=== PATIENT | male | born 1975 | race Asian ===

== ENCOUNTER 2016-10-04 17:26 | Inpatient (IN) | payer MEDICAID ==
[~2016-10-04] VITALS: Ht 172.7 cm; Wt 70.6 kg
[2016-10-04] VITALS (7 sets, daily range): BP systolic 104–117; BP diastolic 55–63
[~2016-10-04 17:26] MED LIST: LEVAQUIN PO; NOCURR; SLEEPING; anxiety med
[2016-10-04 19:20] LABS: BASOPHILS % (AUTO) 0.5 % (0.0-2.0); EOSINOPHILS % (AUTO) 0.1 % (1.0-6.0); LYMPHOCYTES # (AUTO) 1.5 K/uL (1.0-4.8); LYMPHOCYTES % (AUTO) 25.8 % (22.0-44.0); MEAN CORPUSCULAR HEMOGLOBIN 25.2 pg (26.0-34.0); MEAN CORPUSCULAR HGB CONC 32.6 G/dL (31.0-37.0); MEAN CORPUSCULAR VOLUME 77 fL (80-100); MONOCYTES # (AUTO) 0.3 K/uL (0.1-1.0); MONOCYTES % (AUTO) 5.6 % (2.0-9.0); NEUTROPHILS # (AUTO) 3.9 K/uL (1.8-7.7); PLATELET COUNT (AUTO) 276 K/uL (150-450); RED CELL DISTRIBUTION WIDTH 25.2 % (11.5-14.5); WHITE BLOOD COUNT (AUTO) 5.8 K/uL (4.5-11.0)
[2016-10-04 19:29] LABS: ANION GAP 5 mmol/L (8-16); CALCIUM, TOTAL 7.4 mg/dL (8.8-10.5); CARBON DIOXIDE 27 mmol/L (22-29); CHLORIDE 109 mmol/L (98-107); GLOMERULAR FILTR. RATE CALC > 60 mL/min (>60); POTASSIUM 4.2 mmol/L (3.5-5.1); SODIUM SERUM 141 mmol/L (136-145); UREA NITROGEN, BLOOD 36 mg/dL (7-18)
[2016-10-04 19:33] LABS: HEMATOCRIT 18.6 % (41-53); HEMOGLOBIN 6.1 g/dL (13.5-17.5)
[2016-10-04 19:37] LABS: ALANINE AMINOTRANSFERASE 18 U/L (12-78); ALBUMIN 2.4 g/dL (3.4-5.0); ASPARTATE AMINOTRANSFERASE 17 U/L (15-37); BILIRUBIN,TOTAL 0.2 mg/dL (0.1-1.0); TOTAL PROTEIN, SERUM 5.1 g/dL (6.4-8.2)
[2016-10-04 20:02] LABS: RBC MORPHOLOGY COMMENT ABNORMAL RBC MORPH
[2016-10-04] MEDS ORDERED: ACETAMINOPHEN 325 MG TABLET PO PRN (21:15)
[2016-10-04] MEDS ORDERED: ONDANSETRON HCL 4 MG/2 ML VIAL IVP PRN (21:15)
[2016-10-04] MEDS ORDERED: 0.9% SODIUM CHLORIDE 10 ML SYRINGE IVP PRN (21:15)
[2016-10-04] MEDS ORDERED: MAGNESIUM HYDROXIDE SUSPENSION 30 ML UDCUP PO PRN (22:15)
[2016-10-05] VITALS (15 sets, daily range): BP systolic 92–115; BP diastolic 43–73
[2016-10-05] MEDS: PANTOPRAZOLE SODIUM 40 MG/VIAL IVP SCH ×3 (01:11→20:25)
[2016-10-05] MEDS: DEXTROSE 5%-0.45% SODIUM CHL 1,000 ML IV SCH ×2 (05:53→11:35)
[2016-10-05 07:22] LABS: BASOPHILS % (AUTO) 0.5 % (0.0-2.0); EOSINOPHILS % (AUTO) 0.6 % (1.0-6.0); HEMATOCRIT 24.3 % (41-53); HEMOGLOBIN 7.7 g/dL (13.5-17.5); LYMPHOCYTES # (AUTO) 2.2 K/uL (1.0-4.8); LYMPHOCYTES % (AUTO) 38.1 % (22.0-44.0); MEAN CORPUSCULAR HEMOGLOBIN 26.2 pg (26.0-34.0); MEAN CORPUSCULAR HGB CONC 31.8 G/dL (31.0-37.0); MEAN CORPUSCULAR VOLUME 82 fL (80-100); MONOCYTES # (AUTO) 0.5 K/uL (0.1-1.0); MONOCYTES % (AUTO) 8.9 % (2.0-9.0); NEUTROPHILS % (AUTO) 51.9 % (40.0-70.0); PLATELET COUNT (AUTO) 235 K/uL (150-450); RED BLOOD CELL COUNT(AUTO) 2.96 MIL/uL (4.50-5.90); RED CELL DISTRIBUTION WIDTH 24.3 % (11.5-14.5); WHITE BLOOD COUNT (AUTO) 5.9 K/uL (4.5-11.0)
[2016-10-05 08:30] LABS: RBC MORPHOLOGY COMMENT ABNORMAL RBC MORPH
[2016-10-05] MEDS: DOCUSATE SODIUM 100 MG CAPSULE PO SCH ×2 (09:00→20:25)
[2016-10-05] MEDS ORDERED: SODIUM CHLORIDE 0.9% 1,000 ML IV ONE ×2 (10:39→11:00)
[2016-10-05] MEDS ORDERED: LIDOCAINE HCL 2% VISCOUS 15 ML SOLUTION UDCUP PO ONE (11:45)
[2016-10-05 13:22] LABS: HEMATOCRIT 23.1 % (41-53); HEMOGLOBIN 7.4 g/dL (13.5-17.5)
[2016-10-05 13:34] LABS: PROTHROMBIN TIME 10.4 SEC (9.4-11.6)
[2016-10-05] MEDS ORDERED: PROPOFOL 1% 20 ML VIAL IVP ONE (20:57)
[2016-10-05] MEDS ORDERED: LIDOCAINE HCL/PF 2% 5 ML SYRINGE IVP ONE (20:57)
[2016-10-06 04:30] VITALS: BP 101/56
[2016-10-06 06:15] LABS: BASOPHILS % (AUTO) 0.5 % (0.0-2.0); EOSINOPHILS % (AUTO) 0.6 % (1.0-6.0); HEMATOCRIT 21.9 % (41-53); HEMOGLOBIN 7.1 g/dL (13.5-17.5); LYMPHOCYTES # (AUTO) 1.3 K/uL (1.0-4.8); MEAN CORPUSCULAR HEMOGLOBIN 26.7 pg (26.0-34.0); MEAN CORPUSCULAR HGB CONC 32.2 G/dL (31.0-37.0); MEAN CORPUSCULAR VOLUME 83 fL (80-100); MONOCYTES # (AUTO) 0.4 K/uL (0.1-1.0); NEUTROPHILS # (AUTO) 3.4 K/uL (1.8-7.7); NEUTROPHILS % (AUTO) 64.9 % (40.0-70.0); PLATELET COUNT (AUTO) 238 K/uL (150-450); RED BLOOD CELL COUNT(AUTO) 2.64 MIL/uL (4.50-5.90); RED CELL DISTRIBUTION WIDTH 24.9 % (11.5-14.5); WHITE BLOOD COUNT (AUTO) 5.2 K/uL (4.5-11.0)
[2016-10-06 06:41] LABS: ALANINE AMINOTRANSFERASE 24 U/L (12-78); ALBUMIN 2.3 g/dL (3.4-5.0); ANION GAP 4 mmol/L (8-16); ASPARTATE AMINOTRANSFERASE 18 U/L (15-37); BILIRUBIN,TOTAL 0.2 mg/dL (0.1-1.0); CALCIUM, TOTAL 7.4 mg/dL (8.8-10.5); CARBON DIOXIDE 28 mmol/L (22-29); CHLORIDE 112 mmol/L (98-107); CREATININE 0.64 mg/dL (0.60-1.30); GLOMERULAR FILTR. RATE CALC > 60 mL/min (>60); POTASSIUM 4.1 mmol/L (3.5-5.1); SODIUM SERUM 144 mmol/L (136-145); TOTAL PROTEIN, SERUM 5.1 g/dL (6.4-8.2); UREA NITROGEN, BLOOD 14 mg/dL (7-18)
[2016-10-06 07:15] LABS: RBC MORPHOLOGY COMMENT ABNORMAL RBC MORPH
[2016-10-06 08:15] VITALS: BP 113/62
[2016-10-06] MEDS: PANTOPRAZOLE SODIUM 40 MG/VIAL IVP SCH ×2 (08:24→20:24)
[2016-10-06] MEDS: DOCUSATE SODIUM 100 MG CAPSULE PO SCH ×2 (08:24→20:24)
[2016-10-06] MEDS: ACETAMINOPHEN 325 MG TABLET PO PRN ×2 (08:25→22:53)
[2016-10-06 12:16] VITALS: BP 127/73
[2016-10-06 16:00] VITALS: BP 116/70
[2016-10-06 23:51] VITALS: BP 119/71
[2016-10-07 05:29] VITALS: BP 125/93
[2016-10-07 07:22] VITALS: BP 120/71
[2016-10-07 07:30] LABS: BASOPHILS % (AUTO) 0.4 % (0.0-2.0); HEMATOCRIT 23.2 % (41-53); HEMOGLOBIN 7.5 g/dL (13.5-17.5); LYMPHOCYTES # (AUTO) 1.5 K/uL (1.0-4.8); LYMPHOCYTES % (AUTO) 33.1 % (22.0-44.0); MEAN CORPUSCULAR HEMOGLOBIN 26.5 pg (26.0-34.0); MEAN CORPUSCULAR HGB CONC 32.1 G/dL (31.0-37.0); MEAN CORPUSCULAR VOLUME 83 fL (80-100); MONOCYTES # (AUTO) 0.6 K/uL (0.1-1.0); NEUTROPHILS # (AUTO) 2.5 K/uL (1.8-7.7); NEUTROPHILS % (AUTO) 53.5 % (40.0-70.0); PLATELET COUNT (AUTO) 269 K/uL (150-450); RED BLOOD CELL COUNT(AUTO) 2.81 MIL/uL (4.50-5.90); RED CELL DISTRIBUTION WIDTH 25.8 % (11.5-14.5); WHITE BLOOD COUNT (AUTO) 4.7 K/uL (4.5-11.0)
[2016-10-07 07:56] LABS: ALANINE AMINOTRANSFERASE 23 U/L (12-78); ALBUMIN 2.5 g/dL (3.4-5.0); ANION GAP 4 mmol/L (8-16); ASPARTATE AMINOTRANSFERASE 19 U/L (15-37); BILIRUBIN,TOTAL 0.2 mg/dL (0.1-1.0); CARBON DIOXIDE 30 mmol/L (22-29); CHLORIDE 108 mmol/L (98-107); CREATININE 0.67 mg/dL (0.60-1.30); GLOMERULAR FILTR. RATE CALC > 60 mL/min (>60); POTASSIUM 4.7 mmol/L (3.5-5.1); SODIUM SERUM 142 mmol/L (136-145); TOTAL PROTEIN, SERUM 5.5 g/dL (6.4-8.2); UREA NITROGEN, BLOOD 13 mg/dL (7-18)
[2016-10-07] MEDS: DOCUSATE SODIUM 100 MG CAPSULE PO SCH (08:32)
[2016-10-07] MEDS: PANTOPRAZOLE SODIUM 40 MG/VIAL IVP SCH (08:32)
[2016-10-07 10:36] VITALS: BP 106/73
[2016-10-07 12:21] LABS: RBC MORPHOLOGY COMMENT ABNORMAL RBC MORPH
[2016-10-07 16:07] VITALS: BP 111/63
[2016-10-07] MEDS ORDERED: FERR-89 PO (17:12)
[2016-10-07] MEDS ORDERED: DSS100 PO (17:13)
[2016-10-07] MEDS ORDERED: OMEP20 PO (17:14)
[2016-10-07] MEDS ORDERED: AMOX500T2 PO (17:16)
[2016-10-07] MEDS ORDERED: CLAR500T3 PO (17:17)
== END 2016-10-07 17:45 | disposition home or self-care (01) | DRG 241 ==
LOC: EMS 17:28 → 5N 21:00
PROVIDERS: ADMIT Internal Medicine; ATTEND Internal Medicine
PROC: 30233N1 Transfusion of Nonautologous Red Blood Cells into Peripheral Vein, Percutaneous Approach (ICD-10-PCS; 2016-10-04)
PROC: 0DB68ZX Excision of Stomach, Via Natural or Artificial Opening Endoscopic, Diagnostic (ICD-10-PCS; principal; 2016-10-05 11:45)
DX: K25.4 Chronic or unspecified gastric ulcer with hemorrhage (principal); E43 Unspecified severe protein-calorie malnutrition; E88.09 Other disorders of plasma-protein metabolism, not elsewhere classified; D50.9 Iron deficiency anemia, unspecified; F17.210 Nicotine dependence, cigarettes, uncomplicated; F32.9 Major depressive disorder, single episode, unspecified; B96.81 Helicobacter pylori [H. pylori] as the cause of diseases classified elsewhere; G90.9 Disorder of the autonomic nervous system, unspecified; F41.9 Anxiety disorder, unspecified; D62 Acute posthemorrhagic anemia; F15.90 Other stimulant use, unspecified, uncomplicated; F19.10 Other psychoactive substance abuse, uncomplicated; F64.9 Gender identity disorder, unspecified; F43.10 Post-traumatic stress disorder, unspecified; G47.00 Insomnia, unspecified; Z72.89 Other problems related to lifestyle; Z68.23 Body mass index [BMI] 23.0-23.9, adult; Z91.81 History of falling
CPT/HCPCS: 70450; 82271; 85014; 85018; 86850; 86900; 86901; 86920; 87389; 88305; 88312; 99285; C9113; J2704; J3490; J7030; P9016

== ENCOUNTER 2018-11-08 11:46 | Emergency (ER) | payer MEDICAID ==
[~2018-11-08] VITALS: Ht 172.7 cm; Wt 70.5 kg
[~2018-11-08 11:46] MED LIST changes: +AMOX500T2 PO; +CLAR500T3 PO; +DSS100 PO; +FERR-89 PO; -LEVAQUIN PO; -NOCURR; +OMEP20 PO; -SLEEPING; -anxiety med
[2018-11-08 12:37] VITALS: BP 123/87
[2018-11-08] MEDS ORDERED: FLUORESCEIN SODIUM 1 MG STRIP OD ONE (13:30)
[2018-11-08] MEDS ORDERED: PROPARACAINE HCL 0.5% 15 ML OPHTHALMIC SOLUTION OD ONE (13:30)
[2018-11-08] MEDS ORDERED: IBUPROFEN 800 MG TABLET PO ONE (13:30)
== END 2018-11-08 14:27 | disposition home or self-care (01) ==
LOC: EMS 11:47
DX: H10.9 Unspecified conjunctivitis (principal); F15.90 Other stimulant use, unspecified, uncomplicated; F32.9 Major depressive disorder, single episode, unspecified; F41.9 Anxiety disorder, unspecified

== ENCOUNTER 2019-02-05 00:25 | Emergency (ER) | payer MEDICAID ==
[~2019-02-05] VITALS: Ht 172.7 cm; Wt 75.0 kg
[2019-02-05] MEDS ORDERED: CEPHALEXIN MONOHYDRATE 500 MG CAPSULE PO ONE (01:45)
[2019-02-05] MEDS ORDERED: PERTUSS(ACELL),DIPH,TET VAC/PF 0.5 ML VIAL IM ONE (01:45)
[2019-02-05] MEDS ORDERED: LIDOCAINE 1% 10 ML VIAL ONE (01:47)
[2019-02-05 03:00] VITALS: BP 129/69
== END 2019-02-05 03:58 | disposition home or self-care (01) ==
LOC: EMS 00:28
DX: L02.216 Cutaneous abscess of umbilicus (principal); L03.316 Cellulitis of umbilicus; G47.00 Insomnia, unspecified; F41.9 Anxiety disorder, unspecified; F32.9 Major depressive disorder, single episode, unspecified; F15.90 Other stimulant use, unspecified, uncomplicated
CPT/HCPCS: 10060; 90471; 90715; 99284; J3490

== ENCOUNTER 2019-07-27 07:21 | Emergency (ER) | payer MEDICAID ==
[~2019-07-27] VITALS: Ht 172.7 cm; Wt 68.2 kg
[2019-07-27] MEDS ORDERED: FLUORESCEIN SODIUM 1 MG STRIP OU ONE (09:00)
[2019-07-27] MEDS ORDERED: PROPARACAINE HCL 0.5% 15 ML OPHTHALMIC SOLUTION OU ONE (09:00)
[2019-07-27 09:32] VITALS: BP 137/91
== END 2019-07-27 09:40 | disposition home or self-care (01) ==
LOC: EMS 07:22
DX: H16.003 Unspecified corneal ulcer, bilateral (principal); G47.00 Insomnia, unspecified; F41.9 Anxiety disorder, unspecified; F32.9 Major depressive disorder, single episode, unspecified; F15.90 Other stimulant use, unspecified, uncomplicated

== ENCOUNTER 2019-09-15 06:50 | Emergency (ER) | payer MEDICAID ==
[~2019-09-15] VITALS: Ht 172.7 cm; Wt 68.2 kg
[2019-09-15] MEDS ORDERED: MECLIZINE HCL 25 MG TABLET PO ONE (07:30)
[2019-09-15 07:35] LABS: BASOPHILS % (AUTO) 0.4 % (0.0-2.0); EOSINOPHILS % (AUTO) 0.1 % (1.0-6.0); HEMATOCRIT 42.8 % (41-53); HEMOGLOBIN 14.4 g/dL (13.5-17.5); LYMPHOCYTES # (AUTO) 0.7 K/uL (1.0-4.8); LYMPHOCYTES % (AUTO) 8.4 % (22.0-44.0); MEAN CORPUSCULAR HGB CONC 33.6 G/dL (31.0-37.0); MEAN CORPUSCULAR VOLUME 89 fL (80-100); MONOCYTES # (AUTO) 0.5 K/uL (0.1-1.0); MONOCYTES % (AUTO) 5.9 % (2.0-9.0); NEUTROPHILS # (AUTO) 7.6 K/uL (1.8-7.7); PLATELET COUNT (AUTO) 223 K/uL (150-450); RED BLOOD CELL COUNT(AUTO) 4.79 MIL/uL (4.50-5.90); RED CELL DISTRIBUTION WIDTH 13.7 % (11.5-14.5)
[2019-09-15 07:37] LABS: NEUTROPHILS % (AUTO) 85.2 % (40.0-70.0)
[2019-09-15 07:53] LABS: ANION GAP 8 mmol/L (8-16); CALCIUM, TOTAL 8.2 mg/dL (8.8-10.5); CARBON DIOXIDE 27 mmol/L (22-29); CHLORIDE 97 mmol/L (98-107); CREATININE 0.95 mg/dL (0.60-1.30); GLOMERULAR FILTR. RATE CALC > 60 mL/min (>60); GLUCOSE,RANDOM 102 mg/dL (70-110); POTASSIUM 3.8 mmol/L (3.5-5.1); SODIUM SERUM 132 mmol/L (136-145); UREA NITROGEN, BLOOD 17 mg/dL (7-18)
[2019-09-15 07:58] LABS: ALANINE AMINOTRANSFERASE 37 U/L (12-78); ALBUMIN 3.5 g/dL (3.4-5.0); ALKALINE PHOSPHATASE 64 U/L (46-116); ASPARTATE AMINOTRANSFERASE 31 U/L (15-37); BILIRUBIN,TOTAL 1.4 mg/dL (0.1-1.0); TOTAL PROTEIN, SERUM 7.9 g/dL (6.4-8.2)
[2019-09-15 09:52] VITALS: BP 105/65
== END 2019-09-15 09:59 | disposition left against medical advice (07) ==
LOC: EMS 06:50
DX: R51 Headache (principal); R42 Dizziness and giddiness; F41.9 Anxiety disorder, unspecified; F32.9 Major depressive disorder, single episode, unspecified; F19.90 Other psychoactive substance use, unspecified, uncomplicated
CPT/HCPCS: 36415; 70450; 80053; 85025; 93005; 99285; G0480

== ENCOUNTER 2019-09-18 19:59 | Emergency (ER) | payer MEDICAID ==
[~2019-09-18] VITALS: Ht 172.7 cm; Wt 68.2 kg
[2019-09-18] MEDS ORDERED: FLUORESCEIN SODIUM 1 MG STRIP OD ONE (22:45)
[2019-09-18] MEDS ORDERED: GENTAMICIN SULFATE 0.3% OPHTHALMIC SOLUTION 5 ML OD ONE (23:45)
[2019-09-18 23:55] VITALS: BP 127/85
== END 2019-09-18 23:56 | disposition home or self-care (01) ==
LOC: EMS 19:59
DX: S05.01XA Injury of conjunctiva and corneal abrasion without foreign body, right eye, initial encounter (principal); H57.89 Other specified disorders of eye and adnexa; L73.9 Follicular disorder, unspecified; F41.9 Anxiety disorder, unspecified; F32.9 Major depressive disorder, single episode, unspecified; X58.XXXA Exposure to other specified factors, initial encounter; Y93.89 Activity, other specified; Y92.89 Other specified places as the place of occurrence of the external cause; Y99.8 Other external cause status

== ENCOUNTER 2019-09-21 18:20 | Emergency (ER) | payer MEDICAID ==
[~2019-09-21] VITALS: Ht 175.3 cm; Wt 68.2 kg
[2019-09-21] MEDS ORDERED: SODIUM CHLORIDE 0.9% 1,000 ML IV ONE (18:48)
[2019-09-21] MEDS ORDERED: METOCLOPRAMIDE HCL 5 MG/ML 2 ML VIAL IVP ONE (19:00)
[2019-09-21] MEDS ORDERED: KETOROLAC TROMETHAMINE 30 MG/ML VIAL IVP ONE (19:00)
[2019-09-21 22:02] VITALS: BP 132/80
== END 2019-09-21 22:18 | disposition home or self-care (01) ==
LOC: EMS 18:21
DX: G43.909 Migraine, unspecified, not intractable, without status migrainosus (principal); R11.2 Nausea with vomiting, unspecified; G47.00 Insomnia, unspecified; F41.9 Anxiety disorder, unspecified; F32.9 Major depressive disorder, single episode, unspecified
CPT/HCPCS: 96361; 96374; 96375; 99284; J1885; J2765; J7030

== ENCOUNTER 2019-10-13 12:08 | Emergency (ER) | payer MEDICAID ==
[~2019-10-13] VITALS: Ht 172.7 cm; Wt 68.2 kg
[2019-10-13] MEDS ORDERED: FLUORESCEIN SODIUM 1 MG STRIP OU ONE (12:45)
[2019-10-13] MEDS ORDERED: PROPARACAINE HCL 0.5% 15 ML OPHTHALMIC SOLUTION OU ONE (12:45)
[2019-10-13 13:20] VITALS: BP 120/69
== END 2019-10-13 13:24 | disposition home or self-care (01) ==
LOC: EMS 12:18
DX: S05.02XA Injury of conjunctiva and corneal abrasion without foreign body, left eye, initial encounter (principal); G43.909 Migraine, unspecified, not intractable, without status migrainosus; F41.9 Anxiety disorder, unspecified; F32.9 Major depressive disorder, single episode, unspecified; X58.XXXA Exposure to other specified factors, initial encounter; Y93.89 Activity, other specified; Y92.89 Other specified places as the place of occurrence of the external cause; Y99.8 Other external cause status

== ENCOUNTER 2020-01-09 19:52 | Emergency (ER) | payer MEDICAID ==
[~2020-01-09] VITALS: Ht 172.7 cm; Wt 70.5 kg
[2020-01-09 21:54] VITALS: BP 117/82
== END 2020-01-09 23:30 | disposition left against medical advice (07) ==
LOC: EMS 19:53
DX: H57.11 Ocular pain, right eye (principal); Z53.21 Procedure and treatment not carried out due to patient leaving prior to being seen by health care provider

== ENCOUNTER 2020-01-13 10:16 | Emergency (ER) | payer MEDICAID ==
[~2020-01-13] VITALS: Ht 175.3 cm; Wt 68.2 kg
[2020-01-13 10:21] VITALS: BP 125/78
[2020-01-13] MEDS ORDERED: FLUORESCEIN SODIUM 1 MG STRIP OU ONE (11:00)
[2020-01-13] MEDS ORDERED: PROPARACAINE HCL 0.5% 15 ML OPHTHALMIC SOLUTION OU ONE (11:00)
== END 2020-01-13 11:43 | disposition left against medical advice (07) ==
LOC: EMS 10:17
DX: H57.89 Other specified disorders of eye and adnexa (principal); Z53.21 Procedure and treatment not carried out due to patient leaving prior to being seen by health care provider

== ENCOUNTER 2020-01-17 12:12 | Emergency (ER) | payer MEDICAID ==
[2020-01-17] MEDS ORDERED: FLUORESCEIN SODIUM 1 MG STRIP OD ONE (13:00)
[2020-01-17] MEDS ORDERED: PROPARACAINE HCL 0.5% 15 ML OPHTHALMIC SOLUTION OU ONE (13:00)
== END 2020-01-17 13:16 | disposition left against medical advice (07) ==
LOC: EMS 13:01
DX: H57.11 Ocular pain, right eye (principal); Z53.21 Procedure and treatment not carried out due to patient leaving prior to being seen by health care provider
CPT/HCPCS: 99173

== ENCOUNTER 2020-02-08 03:55 | Emergency (ER) | payer MEDICAID ==
[~2020-02-08] VITALS: Ht 172.7 cm; Wt 70.5 kg
[2020-02-08 04:05] VITALS: BP 123/78
== END 2020-02-08 04:19 | disposition home or self-care (01) ==
LOC: EMS 03:58
DX: T15.91XA Foreign body on external eye, part unspecified, right eye, initial encounter (principal); F32.9 Major depressive disorder, single episode, unspecified; F41.9 Anxiety disorder, unspecified; G43.909 Migraine, unspecified, not intractable, without status migrainosus; Y92.89 Other specified places as the place of occurrence of the external cause
CPT/HCPCS: Z7502

== ENCOUNTER 2020-02-24 03:04 | Emergency (ER) | payer MEDICAID ==
[~2020-02-24] VITALS: Ht 170.2 cm; Wt 70.0 kg
[2020-02-24 04:22] VITALS: BP 129/66
== END 2020-02-24 04:22 | disposition home or self-care (01) ==
LOC: EMS 03:04
DX: K64.9 Unspecified hemorrhoids (principal)
CPT/HCPCS: Z7502

== ENCOUNTER 2020-02-25 18:40 | Emergency (ER) | payer MEDICAID ==
[~2020-02-25] VITALS: Ht 177.8 cm; Wt 70.5 kg
[2020-02-25 19:28] LABS: BASOPHILS % (AUTO) 0.7 % (0.0-2.0); EOSINOPHILS % (AUTO) 2.1 % (1.0-6.0); HEMATOCRIT 41.4 % (41-53); LYMPHOCYTES # (AUTO) 0.9 K/uL (1.0-4.8); LYMPHOCYTES % (AUTO) 34.8 % (22.0-44.0); MEAN CORPUSCULAR HEMOGLOBIN 31.3 pg (26.0-34.0); MEAN CORPUSCULAR HGB CONC 33.9 G/dL (31.0-37.0); MEAN CORPUSCULAR VOLUME 93 fL (80-100); MONOCYTES # (AUTO) 0.3 K/uL (0.1-1.0); MONOCYTES % (AUTO) 12.5 % (2.0-9.0); NEUTROPHILS # (AUTO) 1.3 K/uL (1.8-7.7); NEUTROPHILS % (AUTO) 49.9 % (40.0-70.0); PLATELET COUNT (AUTO) 259 K/uL (150-450); RED BLOOD CELL COUNT(AUTO) 4.47 MIL/uL (4.50-5.90); RED CELL DISTRIBUTION WIDTH 13.5 % (11.5-14.5)
[2020-02-25] MEDS ORDERED: IOVERSOL 320 MG/ML 100 ML VIAL ONE (19:43)
[2020-02-25 19:51] LABS: ANION GAP 4 mmol/L (8-16); CALCIUM, TOTAL 8.8 mg/dL (8.8-10.5); CARBON DIOXIDE 31 mmol/L (22-29); CHLORIDE 104 mmol/L (98-107); CREATININE 1.19 mg/dL (0.60-1.30); GLOMERULAR FILTR. RATE CALC > 60 mL/min (>60); GLUCOSE,RANDOM 130 mg/dL (70-110); POTASSIUM 4.6 mmol/L (3.5-5.1); SODIUM SERUM 139 mmol/L (136-145); UREA NITROGEN, BLOOD 18 mg/dL (7-18)
[2020-02-25 19:55] LABS: ALANINE AMINOTRANSFERASE 34 U/L (12-78); ALBUMIN 3.4 g/dL (3.4-5.0); ALKALINE PHOSPHATASE 86 U/L (46-116); ASPARTATE AMINOTRANSFERASE 28 U/L (15-37); BILIRUBIN,TOTAL 0.4 mg/dL (0.1-1.0)
[2020-02-25] MEDS ORDERED: ACETAMINOPHEN 500 MG TABLET PO ONE (20:15)
[2020-02-25 22:00] VITALS: BP 123/71
== END 2020-02-25 22:35 | disposition home or self-care (01) ==
LOC: EMS 18:40
DX: R22.1 Localized swelling, mass and lump, neck (principal); F32.9 Major depressive disorder, single episode, unspecified; G40.909 Epilepsy, unspecified, not intractable, without status epilepticus
CPT/HCPCS: 36415; 70491; 80053; 85025; 99285; Q9967

== ENCOUNTER 2020-04-27 05:11 | Emergency (ER) | payer MEDICAID ==
[~2020-04-27] VITALS: Ht 172.7 cm; Wt 63.6 kg
[2020-04-27] MEDS ORDERED: DiphenhydrAMINE HCL 50 MG/ML VIAL IVP ONE (06:15)
[2020-04-27] MEDS ORDERED: KETOROLAC TROMETHAMINE 30 MG/ML VIAL IVP ONE (06:15)
[2020-04-27] MEDS ORDERED: METOCLOPRAMIDE HCL 5 MG/ML 2 ML VIAL IVP ONE (06:15)
[2020-04-27] MEDS ORDERED: SODIUM CHLORIDE 0.9% 1,000 ML IV ONE (06:15)
[2020-04-27 07:35] VITALS: BP 129/75
== END 2020-04-27 07:35 | disposition home or self-care (01) ==
LOC: EMS 05:11
DX: G43.909 Migraine, unspecified, not intractable, without status migrainosus (principal); F32.9 Major depressive disorder, single episode, unspecified; F41.9 Anxiety disorder, unspecified
CPT/HCPCS: 96361; 96374; 96375; 99284; J1200; J1885; J2765; J7030

== ENCOUNTER 2020-04-30 17:26 | Emergency (ER) | payer MEDICAID ==
[~2020-04-30] VITALS: Ht 172.7 cm; Wt 56.8 kg
[2020-04-30] MEDS ORDERED: DiphenhydrAMINE HCL 50 MG/ML VIAL IVP ONE (18:15)
[2020-04-30] MEDS ORDERED: PROCHLORPERAZINE EDISYLATE 5 MG/ML 2 ML VIAL IVP ONE (18:15)
[2020-04-30] MEDS ORDERED: SODIUM CHLORIDE 0.9% 1,000 ML IV ONE (18:15)
[2020-04-30 21:00] VITALS: BP 116/74
== END 2020-04-30 21:38 | disposition home or self-care (01) ==
LOC: EMS 17:26
DX: G43.909 Migraine, unspecified, not intractable, without status migrainosus (principal); F41.9 Anxiety disorder, unspecified; F32.9 Major depressive disorder, single episode, unspecified
CPT/HCPCS: 96361; 96374; 96375; 99284; J0780; J1200; J7030

== ENCOUNTER 2020-05-28 00:35 | Emergency (ER) | payer MEDICAID ==
[~2020-05-28] VITALS: Ht 172.7 cm; Wt 64.1 kg
[2020-05-28 00:37] VITALS: BP 136/90
[2020-05-28] MEDS ORDERED: PERTUSS(ACELL),DIPH,TET VAC/PF 0.5 ML VIAL IM ONE (02:15)
[2020-05-28] MEDS ORDERED: ACETAMINOPHEN 500 MG TABLET PO ONE ×2 (02:30)
== END 2020-05-28 02:39 | disposition home or self-care (01) ==
LOC: EMS 00:37
DX: T74.21XA Adult sexual abuse, confirmed, initial encounter (principal); F41.9 Anxiety disorder, unspecified; F32.9 Major depressive disorder, single episode, unspecified; G43.909 Migraine, unspecified, not intractable, without status migrainosus
CPT/HCPCS: 90471; 90715

== ENCOUNTER 2020-07-24 02:14 | Emergency (ER) | payer MEDICAID ==
[~2020-07-24] VITALS: Ht 172.7 cm; Wt 68.6 kg
[2020-07-24 02:19] VITALS: BP 116/83
== END 2020-07-24 02:59 | disposition left against medical advice (07) ==
LOC: EMS 02:18
DX: M54.9 Dorsalgia, unspecified (principal); Z53.21 Procedure and treatment not carried out due to patient leaving prior to being seen by health care provider

== ENCOUNTER 2020-07-24 17:13 | Emergency (ER) | payer MEDICAID ==
[~2020-07-24] VITALS: Ht 175.3 cm; Wt 68.6 kg
[2020-07-24 17:18] VITALS: BP 143/88
== END 2020-07-24 20:07 | disposition left against medical advice (07) ==
LOC: EMS 17:13
DX: R51.9 Headache, unspecified (principal); Z53.21 Procedure and treatment not carried out due to patient leaving prior to being seen by health care provider

== ENCOUNTER 2020-07-25 16:26 | Emergency (ER) | payer MEDICAID ==
[~2020-07-25] VITALS: Ht 172.7 cm; Wt 68.6 kg
[2020-07-25 16:46] VITALS: BP 139/86
== END 2020-07-25 17:05 | disposition home or self-care (01) ==
LOC: EMS 16:26
DX: L02.811 Cutaneous abscess of head [any part, except face] (principal); F32.9 Major depressive disorder, single episode, unspecified; F41.9 Anxiety disorder, unspecified

== ENCOUNTER 2020-10-03 23:01 | Emergency (ER) | payer MEDICAID ==
[~2020-10-03] VITALS: Ht 172.7 cm; Wt 63.6 kg
[2020-10-03 23:04] VITALS: BP 140/96
[2020-10-04] MEDS ORDERED: SOD BORATE/BORIC AC/WATER/NACL 118 ML BOTTLE OU ONE (00:30)
[2020-10-04] MEDS ORDERED: OXYMETAZOLINE HCL 0.05% 15 ML NASAL SPRAY NASAL ONE (00:30)
== END 2020-10-04 00:41 | disposition home or self-care (01) ==
LOC: EMS 23:04
DX: R04.0 Epistaxis (principal); G43.909 Migraine, unspecified, not intractable, without status migrainosus; F32.9 Major depressive disorder, single episode, unspecified; F41.9 Anxiety disorder, unspecified; Z88.8 Allergy status to other drugs, medicaments and biological substances
CPT/HCPCS: 99282; Z7502; Z7610

== ENCOUNTER 2020-11-15 22:03 | Emergency (ER) | payer MEDICAID ==
[~2020-11-15] VITALS: Ht 172.7 cm; Wt 57.3 kg
[2020-11-15 22:13] VITALS: BP 149/85
[2020-11-15] MEDS ORDERED: DEXTRAN 70 0.1%/HYPROMELL 0.3% 0.9 ML OPHTHALMIC SOLUTION [PF] OU ONE (22:45)
== END 2020-11-15 23:29 | disposition left against medical advice (07) ==
LOC: EMS 22:03
DX: K94.20 Gastrostomy complication, unspecified (principal); F41.9 Anxiety disorder, unspecified; F32.9 Major depressive disorder, single episode, unspecified; G43.909 Migraine, unspecified, not intractable, without status migrainosus
CPT/HCPCS: 99282; Z7502; Z7610

== ENCOUNTER 2020-11-26 04:40 | Emergency (ER) | payer MEDICAID ==
[~2020-11-26] VITALS: Ht 170.2 cm; Wt 58.2 kg
[2020-11-26 05:15] VITALS: BP 130/96
[2020-11-26] MEDS ORDERED: SELENIUM SULFIDE 2.5% LOTION 120 ML BOTTLE TP ONE (05:30)
== END 2020-11-26 05:45 | disposition home or self-care (01) ==
LOC: EMS 04:40
DX: B35.0 Tinea barbae and tinea capitis (principal)
CPT/HCPCS: 99282; Z7502; Z7610

== ENCOUNTER 2020-12-12 00:44 | Emergency (ER) | payer MEDICAID ==
[~2020-12-12] VITALS: Ht 172.7 cm; Wt 60.5 kg
[2020-12-12] MEDS ORDERED: GENTAMICIN SULFATE 0.3% OPHTHALMIC SOLUTION 5 ML OD ONE (01:00)
[2020-12-12 01:05] VITALS: BP 142/77
== END 2020-12-12 02:03 | disposition home or self-care (01) ==
LOC: EMS 00:48
DX: H10.9 Unspecified conjunctivitis (principal); F41.9 Anxiety disorder, unspecified; F32.9 Major depressive disorder, single episode, unspecified
CPT/HCPCS: 99281; Z7502

== ENCOUNTER 2020-12-14 10:43 | Emergency (ER) | payer MEDICAID ==
[~2020-12-14] VITALS: Ht 172.7 cm; Wt 59.1 kg
[2020-12-14] MEDS ORDERED: BACITRACIN 0.9 GM PACKET OINTMENT TP ONE (12:30)
[2020-12-14 12:33] VITALS: BP 119/69
== END 2020-12-14 12:40 | disposition home or self-care (01) ==
LOC: EMS 10:46
DX: S81.851A Open bite, right lower leg, initial encounter (principal); F32.9 Major depressive disorder, single episode, unspecified; F41.9 Anxiety disorder, unspecified; G40.909 Epilepsy, unspecified, not intractable, without status epilepticus; W54.0XXA Bitten by dog, initial encounter; Y93.89 Activity, other specified; Y92.89 Other specified places as the place of occurrence of the external cause; Y99.8 Other external cause status
CPT/HCPCS: 99283

== ENCOUNTER 2020-12-21 02:00 | Emergency (ER) | payer MEDICAID ==
[~2020-12-21] VITALS: Ht 172.7 cm; Wt 60.5 kg
[2020-12-21 02:01] VITALS: BP 127/86
== END 2020-12-21 04:14 | disposition left against medical advice (07) ==
LOC: EMS 02:02
DX: F32.9 Major depressive disorder, single episode, unspecified (principal); Z53.21 Procedure and treatment not carried out due to patient leaving prior to being seen by health care provider

== ENCOUNTER 2020-12-26 03:51 | Emergency (ER) | payer MEDICAID ==
[~2020-12-26] VITALS: Ht 170.2 cm; Wt 58.2 kg
[2020-12-26 04:06] VITALS: BP 116/78
== END 2020-12-26 05:55 | disposition left against medical advice (07) ==
LOC: EMS 03:55
DX: M54.5 Low back pain (principal); Z53.21 Procedure and treatment not carried out due to patient leaving prior to being seen by health care provider

== ENCOUNTER 2021-02-08 01:28 | Emergency (ER) | payer MEDICAID ==
[~2021-02-08] VITALS: Ht 170.2 cm; Wt 58.0 kg
[2021-02-08 01:35] VITALS: BP 152/88
== END 2021-02-08 04:40 | disposition left against medical advice (07) ==
LOC: EMS 01:29
DX: J02.9 Acute pharyngitis, unspecified (principal); Z53.21 Procedure and treatment not carried out due to patient leaving prior to being seen by health care provider

== ENCOUNTER 2021-02-12 02:11 | Emergency (ER) | payer MEDICAID ==
[~2021-02-12] VITALS: Ht 170.2 cm; Wt 75.0 kg
[2021-02-12 02:36] VITALS: BP 126/76
== END 2021-02-12 03:25 | disposition left against medical advice (07) ==
LOC: EMS 02:15
DX: H57.11 Ocular pain, right eye (principal); Z53.21 Procedure and treatment not carried out due to patient leaving prior to being seen by health care provider

== ENCOUNTER 2021-02-12 07:39 | Emergency (ER) | payer MEDICAID ==
[~2021-02-12] VITALS: Ht 162.6 cm; Wt 57.3 kg
[2021-02-12 07:40] VITALS: BP 145/81
[2021-02-12] MEDS ORDERED: PROPARACAINE HCL 0.5% 15 ML OPHTHALMIC SOLUTION OU ONE (08:00)
[2021-02-12] MEDS ORDERED: FLUORESCEIN SODIUM 1 MG STRIP OU ONE (08:00)
[2021-02-12] MEDS ORDERED: GENTAMICIN SULFATE 0.3% OPHTHALMIC SOLUTION 5 ML OU ONE (09:00)
== END 2021-02-12 09:13 | disposition home or self-care (01) ==
LOC: EMS 07:39
DX: S05.01XA Injury of conjunctiva and corneal abrasion without foreign body, right eye, initial encounter (principal); F41.9 Anxiety disorder, unspecified; F32.9 Major depressive disorder, single episode, unspecified; X58.XXXA Exposure to other specified factors, initial encounter; Y93.89 Activity, other specified; Y92.89 Other specified places as the place of occurrence of the external cause; Y99.8 Other external cause status
CPT/HCPCS: 99284; Z7502; Z7610

== ENCOUNTER 2021-02-19 04:34 | Emergency (ER) | payer MEDICAID ==
[~2021-02-19] VITALS: Ht 172.7 cm; Wt 57.3 kg
[2021-02-19 04:39] VITALS: BP 119/79
== END 2021-02-19 05:24 | disposition left against medical advice (07) ==
LOC: EMS 04:37
DX: H57.10 Ocular pain, unspecified eye (principal); Z53.21 Procedure and treatment not carried out due to patient leaving prior to being seen by health care provider

== ENCOUNTER 2021-02-19 08:58 | Emergency (ER) | payer MEDICAID ==
[~2021-02-19] VITALS: Ht 172.7 cm; Wt 56.8 kg
[2021-02-19 09:07] VITALS: BP 130/83
[2021-02-19] MEDS ORDERED: PROPARACAINE HCL 0.5% 15 ML OPHTHALMIC SOLUTION OU ONE (09:45)
[2021-02-19] MEDS ORDERED: FLUORESCEIN SODIUM 1 MG STRIP OU ONE (09:45)
== END 2021-02-19 10:25 | disposition home or self-care (01) ==
LOC: EMS 08:58
DX: H10.89 Other conjunctivitis (principal)
CPT/HCPCS: 99283

== ENCOUNTER 2021-03-02 20:19 | Emergency (ER) | payer MEDICAID ==
[~2021-03-02] VITALS: Ht 172.7 cm; Wt 59.5 kg
[2021-03-02 20:31] VITALS: BP 121/79
[2021-03-02] MEDS ORDERED: FLUORESCEIN SODIUM 1 MG STRIP OU ONE (20:45)
[2021-03-02] MEDS ORDERED: OFLOXACIN 0.3% 5 ML OPHTHALMIC SOLUTION OD ONE (21:15)
== END 2021-03-02 21:45 | disposition home or self-care (01) ==
LOC: EDSEX → MERGE 20:21 → EMS 20:21
DX: H10.9 Unspecified conjunctivitis (principal)
CPT/HCPCS: 99283

== ENCOUNTER 2021-03-14 04:47 | Emergency (ER) | payer MEDICAID ==
[~2021-03-14] VITALS: Ht 172.7 cm; Wt 58.2 kg
[2021-03-14 05:15] VITALS: BP 122/78
== END 2021-03-14 05:59 | disposition left against medical advice (07) ==
LOC: EMS 04:48
DX: H57.10 Ocular pain, unspecified eye (principal); Z53.21 Procedure and treatment not carried out due to patient leaving prior to being seen by health care provider

== ENCOUNTER 2021-03-15 08:08 | Emergency (ER) | payer MEDICAID ==
[~2021-03-15] VITALS: Ht 172.7 cm; Wt 56.4 kg
[2021-03-15 08:11] VITALS: BP 123/75
== END 2021-03-15 10:36 | disposition left against medical advice (07) ==
LOC: EMS 08:11
DX: M25.512 Pain in left shoulder (principal); Z53.21 Procedure and treatment not carried out due to patient leaving prior to being seen by health care provider

== ENCOUNTER 2021-03-18 12:21 | Emergency (ER) | payer MEDICAID ==
[~2021-03-18] VITALS: Ht 172.7 cm; Wt 56.8 kg
[2021-03-18] MEDS ORDERED: KETOROLAC TROMETHAMINE 10 MG TABLET PO ONE (12:45)
[2021-03-18 13:10] VITALS: BP 121/86
== END 2021-03-18 13:16 | disposition home or self-care (01) ==
LOC: EMS 12:35
DX: G43.909 Migraine, unspecified, not intractable, without status migrainosus (principal)
CPT/HCPCS: 99283

== ENCOUNTER 2021-03-23 20:22 | Emergency (ER) | payer MEDICAID | END 2021-03-23 22:46 | disposition left against medical advice (07) | LOC: EMS 20:25 | DX: Z76.0 Encounter for issue of repeat prescription (principal); Z53.21 Procedure and treatment not carried out due to patient leaving prior to being seen by health care provider ==

== ENCOUNTER 2021-03-24 13:59 | Emergency (ER) | payer MEDICAID ==
[~2021-03-24] VITALS: Ht 172.7 cm; Wt 58.2 kg
[2021-03-24 14:04] VITALS: BP 121/74
== END 2021-03-24 14:48 | disposition home or self-care (01) ==
LOC: EMS 13:59
DX: G43.909 Migraine, unspecified, not intractable, without status migrainosus (principal); F17.210 Nicotine dependence, cigarettes, uncomplicated; Z76.0 Encounter for issue of repeat prescription
CPT/HCPCS: 99281; Z7502

== ENCOUNTER 2021-03-28 22:25 | Emergency (ER) | payer MEDICAID ==
[~2021-03-28] VITALS: Ht 172.7 cm; Wt 68.0 kg
[2021-03-28 22:30] VITALS: BP 156/68
[2021-03-28] MEDS ORDERED: CARBOXYMETHYLCELLULOSE SODIUM 0.4 ML OPHTHALMIC SOLUTION [PF] OU ONE (23:00)
== END 2021-03-28 23:00 | disposition home or self-care (01) ==
LOC: EMS 22:26
DX: H57.89 Other specified disorders of eye and adnexa (principal); R51.9 Headache, unspecified; F17.210 Nicotine dependence, cigarettes, uncomplicated; Z76.0 Encounter for issue of repeat prescription
CPT/HCPCS: 99283

== ENCOUNTER 2021-04-02 20:46 | Emergency (ER) | payer MEDICAID | END 2021-04-02 21:45 | disposition left against medical advice (07) | LOC: EMS 20:50 | DX: Z53.21 Procedure and treatment not carried out due to patient leaving prior to being seen by health care provider (principal) ==

== ENCOUNTER 2021-04-05 00:52 | Emergency (ER) | payer MEDICAID | END 2021-04-05 01:20 | disposition left against medical advice (07) | LOC: EMS 00:54 | DX: Z53.21 Procedure and treatment not carried out due to patient leaving prior to being seen by health care provider (principal) ==

== ENCOUNTER 2021-04-18 15:05 | Emergency (ER) | payer MEDICAID ==
[~2021-04-18] VITALS: Ht 172.7 cm; Wt 60.9 kg
[2021-04-18] MEDS ORDERED: SODIUM CHLORIDE 0.9% 1,000 ML IV ONE (16:15)
[2021-04-18 16:34] LABS: EOSINOPHILS % (AUTO) 2.1 % (1.0-6.0); HEMATOCRIT 38.9 % (41-53); HEMOGLOBIN 13.1 g/dL (13.5-17.5); LYMPHOCYTES # (AUTO) 0.5 K/uL (1.0-4.8); LYMPHOCYTES % (AUTO) 25.7 % (22.0-44.0); MEAN CORPUSCULAR HEMOGLOBIN 31.4 pg (26.0-34.0); MEAN CORPUSCULAR HGB CONC 33.7 G/dL (31.0-37.0); MEAN CORPUSCULAR VOLUME 93 fL (80-100); MONOCYTES # (AUTO) 0.3 K/uL (0.1-1.0); MONOCYTES % (AUTO) 14.2 % (2.0-9.0); NEUTROPHILS # (AUTO) 1.2 K/uL (1.8-7.7); PLATELET COUNT (AUTO) 249 K/uL (150-450); RED BLOOD CELL COUNT(AUTO) 4.17 MIL/uL (4.50-5.90); RED CELL DISTRIBUTION WIDTH 13.2 % (11.5-14.5)
[2021-04-18 16:41] LABS: ANION GAP 5 mmol/L (8-16); CALCIUM, TOTAL 8.8 mg/dL (8.8-10.5); CARBON DIOXIDE 30 mmol/L (22-29); CHLORIDE 106 mmol/L (98-107); GLOMERULAR FILTR. RATE CALC > 60 mL/min (>60); GLUCOSE,RANDOM 93 mg/dL (70-110); POTASSIUM 4.3 mmol/L (3.5-5.1); SODIUM SERUM 141 mmol/L (136-145); UREA NITROGEN, BLOOD 21 mg/dL (7-18)
[2021-04-18 16:49] LABS: ALANINE AMINOTRANSFERASE 32 U/L (12-78); ALBUMIN 3.7 g/dL (3.4-5.0); ALKALINE PHOSPHATASE 84 U/L (46-116); ASPARTATE AMINOTRANSFERASE 25 U/L (15-37); BILIRUBIN,TOTAL 0.4 mg/dL (0.1-1.0); LIPASE 116 U/L (73-393); TOTAL PROTEIN, SERUM 7.7 g/dL (6.4-8.2)
[2021-04-18 17:13] VITALS: BP 131/83
[2021-04-18] MEDS ORDERED: KETOROLAC TROMETHAMINE 30 MG/ML VIAL IVP ONE (17:45)
[2021-04-18] MEDS ORDERED: NITROGLYCERIN 2% (1 GM=INCH) PACKET TP ONE (17:45)
== END 2021-04-18 18:26 | disposition home or self-care (01) ==
LOC: EMS 15:05
DX: E86.0 Dehydration (principal)
CPT/HCPCS: 36415; 71045; 80053; 83690; 84484; 85025; 93005; 96361; 96374; 99285; J1885; J7030

== ENCOUNTER 2021-04-24 00:29 | Emergency (ER) | payer MEDICAID ==
[~2021-04-24] VITALS: Ht 170.2 cm; Wt 58.2 kg
[2021-04-24 00:31] VITALS: BP 132/85
== END 2021-04-24 02:10 | disposition left against medical advice (07) ==
LOC: EMS 00:32
DX: M25.511 Pain in right shoulder (principal); Z53.21 Procedure and treatment not carried out due to patient leaving prior to being seen by health care provider

== ENCOUNTER 2021-04-30 03:18 | Emergency (ER) | payer MEDICAID ==
[~2021-04-30] VITALS: Ht 172.7 cm; Wt 68.2 kg
[2021-04-30 03:57] VITALS: BP 128/78
== END 2021-04-30 03:57 | disposition home or self-care (01) ==
LOC: EMS 03:23
DX: R04.0 Epistaxis (principal); F41.9 Anxiety disorder, unspecified
CPT/HCPCS: 99281; Z7502

== ENCOUNTER 2021-05-15 23:06 | Emergency (ER) | payer MEDICAID ==
[~2021-05-15] VITALS: Ht 172.7 cm; Wt 59.1 kg
[2021-05-16] MEDS ORDERED: BACITRACIN 0.9 GM PACKET OINTMENT TP ONE (00:30)
[2021-05-16] MEDS ORDERED: OXYMETAZOLINE HCL 0.05% 15 ML NASAL SPRAY NASAL ONE (00:30)
[2021-05-16 00:37] VITALS: BP 132/79
== END 2021-05-16 00:39 | disposition home or self-care (01) ==
LOC: EMS 23:06
DX: R04.0 Epistaxis (principal)
CPT/HCPCS: 99282; 99283

== ENCOUNTER 2021-05-30 00:43 | Emergency (ER) | payer MEDICAID | END 2021-05-30 01:05 | disposition left against medical advice (07) | LOC: EMS 00:44 | DX: R04.0 Epistaxis (principal); Z53.21 Procedure and treatment not carried out due to patient leaving prior to being seen by health care provider ==

== ENCOUNTER 2021-06-03 02:28 | Emergency (ER) | payer MEDICAID ==
[~2021-06-03] VITALS: Ht 167.6 cm; Wt 62.0 kg
[2021-06-03 02:30] VITALS: BP 140/87
[2021-06-03] MEDS ORDERED: PROPARACAINE HCL 0.5% 15 ML OPHTHALMIC SOLUTION OU ONE (02:30)
[2021-06-03] MEDS ORDERED: FLUORESCEIN SODIUM 1 MG STRIP OU ONE (02:30)
== END 2021-06-03 03:00 | disposition home or self-care (01) ==
LOC: EMS 02:29
DX: S05.51XA Penetrating wound with foreign body of right eyeball, initial encounter (principal); X58.XXXA Exposure to other specified factors, initial encounter; Y93.89 Activity, other specified; Y92.89 Other specified places as the place of occurrence of the external cause; Y99.8 Other external cause status
CPT/HCPCS: 65205; 65220; 99284; Z7502; Z7610

== ENCOUNTER 2021-06-15 15:24 | Emergency (ER) | payer MEDICAID ==
[~2021-06-15] VITALS: Ht 172.7 cm; Wt 56.8 kg
[2021-06-15] MEDS ORDERED: SODIUM CHLORIDE 0.9% 1,000 ML IV ONE (16:15)
[2021-06-15] MEDS ORDERED: ACETAMINOPHEN 1000 MG/ISO-OSM 100 ML IV ONE (16:15)
[2021-06-15] MEDS ORDERED: ONDANSETRON HCL 4 MG/2 ML VIAL IVP ONE (16:15)
[2021-06-15 16:18] LABS: BASOPHILS % (AUTO) 0.2 % (0.0-2.0); EOSINOPHILS % (AUTO) 0 % (1.0-6.0); HEMATOCRIT 40.9 % (41-53); HEMOGLOBIN 14.3 g/dL (13.5-17.5); LYMPHOCYTES # (AUTO) 0.4 K/uL (1.0-4.8); LYMPHOCYTES % (AUTO) 5.8 % (22.0-44.0); MEAN CORPUSCULAR HEMOGLOBIN 31.4 pg (26.0-34.0); MEAN CORPUSCULAR HGB CONC 34.9 G/dL (31.0-37.0); MEAN CORPUSCULAR VOLUME 90 fL (80-100); MONOCYTES # (AUTO) 0.4 K/uL (0.1-1.0); MONOCYTES % (AUTO) 5.9 % (2.0-9.0); NEUTROPHILS # (AUTO) 6.6 K/uL (1.8-7.7); PLATELET COUNT (AUTO) 228 K/uL (150-450); RED BLOOD CELL COUNT(AUTO) 4.55 MIL/uL (4.50-5.90); RED CELL DISTRIBUTION WIDTH 13.1 % (11.5-14.5)
[2021-06-15 16:19] LABS: NEUTROPHILS % (AUTO) 88.1 % (40.0-70.0)
[2021-06-15] MEDS ORDERED: SODIUM CHLORIDE 0.9% 100 ML ONE (16:19)
[2021-06-15] MEDS ORDERED: IOHEXOL 350 MG/ML 100 ML VIAL ONE (16:19)
[2021-06-15 16:22] LABS: COVID AG,FIA SOURCE NASOPHARYNGEAL
[2021-06-15 16:28] LABS: ANION GAP 4 mmol/L (8-16); CALCIUM, TOTAL 9.2 mg/dL (8.8-10.5); CARBON DIOXIDE 28 mmol/L (22-29); CHLORIDE 98 mmol/L (98-107); CREATININE 0.96 mg/dL (0.60-1.30); GLOMERULAR FILTR. RATE CALC > 60 mL/min (>60); GLUCOSE,RANDOM 129 mg/dL (70-110); POTASSIUM 4.6 mmol/L (3.5-5.1); SODIUM SERUM 130 mmol/L (136-145); UREA NITROGEN, BLOOD 22 mg/dL (7-18)
[2021-06-15 16:37] LABS: RAPID GROUP A STREP NEGATIVE (NEGATIVE)
[2021-06-15 16:42] LABS: ALANINE AMINOTRANSFERASE 32 U/L (12-78); ALBUMIN 3.4 g/dL (3.4-5.0); ALKALINE PHOSPHATASE 67 U/L (46-116); ASPARTATE AMINOTRANSFERASE 21 U/L (15-37); BILIRUBIN,TOTAL 0.5 mg/dL (0.1-1.0); FREE T4 (FREE THYROXINE) 0.95 ng/dL (0.76-1.46); THYROID STIMULATING HORMONE 0.79 uIU/mL (0.36-3.74); TOTAL PROTEIN, SERUM 8.2 g/dL (6.4-8.2)
[2021-06-15 17:38] LABS: INFLUENZA TYPE B Presumptive Positive (NEGATIVE)
[2021-06-15 17:40] LABS: INFLUENZA TYPE A Presumptive Positive (NEGATIVE)
[2021-06-15] MEDS ORDERED: DiphenhydrAMINE HCL 50 MG/ML VIAL IVP ONE (21:00)
[2021-06-15] MEDS ORDERED: DEXAMETHASONE SOD PHOS 4 MG/ML 5 ML VIAL IVP ONE (21:00)
[2021-06-15] MEDS ORDERED: AMPICILLIN SODIUM/SULBACTAM NA 3 GM in SODIUM CHLORIDE 0.9% 100 ML IV ONE (21:00)
[2021-06-15] MEDS ORDERED: FAMOTIDINE 10 MG/ML 2 ML VIAL IVP ONE (21:00)
[2021-06-16 00:35] VITALS: BP 114/69
== END 2021-06-16 01:44 | disposition short-term general hospital (02) ==
LOC: EMS 15:27
DX: U07.1 COVID-19 (principal); J39.0 Retropharyngeal and parapharyngeal abscess; J11.1 Influenza due to unidentified influenza virus with other respiratory manifestations; M79.89 Other specified soft tissue disorders
CPT/HCPCS: 36415; 70491; 71045; 80053; 84439; 84443; 85025; 87426; 87430; 87502; 87804; 93005; 96361; 96365; 96375; 99285; J0131; J0295; J1100; J1200; J2405; J3490; J7030; J7050; Q9967

== ENCOUNTER 2021-08-09 15:40 | Emergency (ER) | payer MEDICAID | END 2021-08-09 16:14 | disposition left against medical advice (07) | LOC: EMS 15:58 | DX: Z00.00 Encounter for general adult medical examination without abnormal findings (principal); Z53.21 Procedure and treatment not carried out due to patient leaving prior to being seen by health care provider ==

== ENCOUNTER 2021-08-13 21:24 | Emergency (ER) | payer MEDICAID | END 2021-08-13 23:20 | disposition left against medical advice (07) | LOC: EMS 21:28 | DX: Z00.00 Encounter for general adult medical examination without abnormal findings (principal); Z53.21 Procedure and treatment not carried out due to patient leaving prior to being seen by health care provider ==

== ENCOUNTER 2021-08-31 14:23 | Emergency (ER) | payer MEDICAID | END 2021-08-31 15:17 | disposition left against medical advice (07) | LOC: EMS 14:27 | DX: H57.89 Other specified disorders of eye and adnexa (principal); Z53.21 Procedure and treatment not carried out due to patient leaving prior to being seen by health care provider ==

== ENCOUNTER 2021-09-09 13:19 | Emergency (ER) | payer MEDICAID ==
[~2021-09-09] VITALS: Ht 172.7 cm; Wt 67.7 kg
[2021-09-09] MEDS ORDERED: FLUT16H NASAL (14:25)
[2021-09-09 14:50] VITALS: BP 135/94
== END 2021-09-09 14:52 | disposition home or self-care (01) ==
LOC: EMS 13:23
DX: J30.9 Allergic rhinitis, unspecified (principal); R09.81 Nasal congestion
CPT/HCPCS: 99283

== ENCOUNTER 2021-09-23 14:40 | Emergency (ER) | payer MEDICAID ==
[~2021-09-23] VITALS: Ht 172.7 cm; Wt 63.6 kg
[~2021-09-23 14:40] MED LIST changes: -AMOX500T2 PO; -CLAR500T3 PO; -DSS100 PO; -FERR-89 PO; +FLUT16H NASAL; -OMEP20 PO
[2021-09-23 14:47] VITALS: BP 121/71
== END 2021-09-23 17:47 | disposition left against medical advice (07) ==
LOC: EMS 14:47
DX: J02.9 Acute pharyngitis, unspecified (principal); Z53.21 Procedure and treatment not carried out due to patient leaving prior to being seen by health care provider

== ENCOUNTER → 2021-10-03 17:02 | Emergency (ER) | payer MEDICAID ==
[~2021-10-03 17:02] MED LIST changes: +METH-659 PO
== END | disposition left against medical advice (07) ==
LOC: EMS 17:02
DX: M79.603 Pain in arm, unspecified (principal); Z53.21 Procedure and treatment not carried out due to patient leaving prior to being seen by health care provider

== ENCOUNTER 2021-10-12 17:17 | Emergency (ER) | payer MEDICAID ==
[~2021-10-12] VITALS: Ht 170.2 cm; Wt 62.7 kg
[~2021-10-12 17:17] MED LIST changes: -METH-659 PO
[2021-10-12 17:32] VITALS: BP 148/90
[2021-10-12] MEDS ORDERED: METH-659 PO (18:51)
[2021-10-12] MEDS: HYDROCODONE/ACETAMINOPHEN 5-325 MG TABLET PO ONE ×2 (18:54→19:00)
== END 2021-10-12 19:51 | disposition home or self-care (01) ==
LOC: EMS 17:27
DX: M79.601 Pain in right arm (principal); Z79.899 Other long term (current) drug therapy
CPT/HCPCS: 99281; Z7502; Z7610

== ENCOUNTER 2021-11-06 09:36 | Emergency (ER) | payer MEDICAID ==
[~2021-11-06] VITALS: Ht 172.7 cm; Wt 64.0 kg
[~2021-11-06 09:36] MED LIST changes: +METH-659 PO
[2021-11-06 09:40] VITALS: BP 136/91
[2021-11-06 10:20] LABS: COVID AG,FIA SOURCE NASAL SWAB
[2021-11-06 10:38] LABS: RAPID GROUP A STREP NEGATIVE (NEGATIVE)
[2021-11-06 10:59] LABS: INFLUENZA TYPE A INVALID. RESUBMIT. (NEGATIVE); INFLUENZA TYPE B INVALID. RESUBMIT. (NEGATIVE)
== END 2021-11-06 20:10 | disposition left against medical advice (07) ==
LOC: EMS 09:36
DX: U07.1 COVID-19 (principal); Z87.898 Personal history of other specified conditions; Z98.890 Other specified postprocedural states
CPT/HCPCS: 87430; 87804; 99283

== ENCOUNTER 2021-12-01 01:11 | Emergency (ER) | payer MEDICAID ==
[~2021-12-01] VITALS: Ht 172.7 cm; Wt 64.0 kg
[2021-12-01 01:12] VITALS: BP 154/94
== END 2021-12-01 01:23 | disposition left against medical advice (07) ==
LOC: EMS 01:12
DX: Z53.21 Procedure and treatment not carried out due to patient leaving prior to being seen by health care provider (principal)

== ENCOUNTER 2021-12-10 11:51 | Emergency (ER) | payer MEDICAID ==
[~2021-12-10] VITALS: Ht 172.7 cm; Wt 63.6 kg
[2021-12-10] MEDS ORDERED: ACETAMINOPHEN 500 MG TABLET PO ONE (12:30)
[2021-12-10] MEDS ORDERED: GENTAMICIN SULFATE 0.3% OPHTHALMIC SOLUTION 5 ML OD ONE (12:30)
[2021-12-10] MEDS ORDERED: CEPH-558 PO (12:51)
[2021-12-10 13:03] VITALS: BP 126/85
== END 2021-12-10 13:06 | disposition home or self-care (01) ==
LOC: EMS 11:51
DX: H10.9 Unspecified conjunctivitis (principal); Z93.1 Gastrostomy status
CPT/HCPCS: 99283

== ENCOUNTER 2022-02-10 08:16 | Emergency (ER) | payer MEDICAID ==
[~2022-02-10 08:16] MED LIST changes: +CEPH-558 PO; -FLUT16H NASAL; -METH-659 PO
== END 2022-02-10 09:09 | disposition left against medical advice (07) ==
LOC: EMS 08:16
DX: Z53.21 Procedure and treatment not carried out due to patient leaving prior to being seen by health care provider (principal)

== ENCOUNTER 2022-03-19 00:49 | Emergency (ER) | payer MEDICAID ==
[~2022-03-19] VITALS: Ht 175.3 cm; Wt 61.4 kg
[2022-03-19 00:51] VITALS: BP 118/73
== END 2022-03-19 01:00 | disposition left against medical advice (07) ==
LOC: EMS 00:50
DX: Z53.21 Procedure and treatment not carried out due to patient leaving prior to being seen by health care provider (principal)
CPT/HCPCS: 99173

== ENCOUNTER 2022-03-20 14:14 | Emergency (ER) | payer MEDICAID | END 2022-03-20 14:49 | disposition left against medical advice (07) | LOC: EMS 14:19 | DX: Z53.21 Procedure and treatment not carried out due to patient leaving prior to being seen by health care provider (principal) ==

== ENCOUNTER 2022-03-22 03:15 | Emergency (ER) | payer MEDICAID ==
[~2022-03-22] VITALS: Ht 172.7 cm; Wt 137.0 kg
[2022-03-22 03:30] VITALS: BP 136/95
[2022-03-22] MEDS ORDERED: PROPARACAINE HCL 0.5% 15 ML OPHTHALMIC SOLUTION OD ONE (03:30)
[2022-03-22] MEDS ORDERED: FLUORESCEIN SODIUM 1 MG STRIP OD ONE (04:00)
== END 2022-03-22 04:22 | disposition home or self-care (01) ==
LOC: EMS 03:16
DX: H10.9 Unspecified conjunctivitis (principal); Z98.890 Other specified postprocedural states
CPT/HCPCS: 99283

== ENCOUNTER 2022-03-26 09:48 | Emergency (ER) | payer MEDICAID ==
[~2022-03-26] VITALS: Ht 172.7 cm; Wt 62.3 kg
[2022-03-26] MEDS ORDERED: ONDANSETRON HCL 4 MG TABLET PO ONE (11:30)
[2022-03-26] MEDS ORDERED: ACETAMINOPHEN 325 MG TABLET PO ONE (12:00)
[2022-03-26 12:04] LABS: AMPHET/METH SCREEN,URINE POSITIVE (NEGATIVE); BARBITURATE SCREEN, URINE NEGATIVE (NEGATIVE); BENZODIAZEPINES SCREEN,URINE NEGATIVE (NEGATIVE); CANNABINOID SCREEN,URINE NEGATIVE (NEGATIVE); COCAINE SCREEN,URINE NEGATIVE (NEGATIVE); METHADONE SCREEN, URINE NEGATIVE (NEGATIVE); OPIATE SCREEN,URINE NEGATIVE (NEGATIVE)
[2022-03-26 12:09] LABS: PHENCYCLIDINE SCREEN,URINE NEGATIVE (NEGATIVE)
[2022-03-26 12:58] VITALS: BP 127/82
== END 2022-03-26 13:14 | disposition home or self-care (01) ==
LOC: EMS 09:48
DX: F19.10 Other psychoactive substance abuse, uncomplicated (principal); Z93.1 Gastrostomy status
CPT/HCPCS: 99283; 80307; Q0162

== ENCOUNTER 2022-03-29 18:47 | Emergency (ER) | payer MEDICAID ==
[~2022-03-29] VITALS: Ht 172.7 cm; Wt 63.6 kg
[2022-03-29] MEDS ORDERED: SODIUM CHLORIDE 0.9% 1,000 ML IV ONE (19:30)
[2022-03-29] MEDS ORDERED: KETOROLAC TROMETHAMINE 30 MG/ML VIAL IVP ONE (19:30)
[2022-03-29] MEDS ORDERED: DiphenhydrAMINE HCL 50 MG/ML VIAL IVP ONE (19:30)
[2022-03-29 19:52] LABS: BASOPHILS % (AUTO) 0.7 % (0.0-2.0); EOSINOPHILS % (AUTO) 1.5 % (1.0-6.0); HEMATOCRIT 44.3 % (41-53); HEMOGLOBIN 14.7 g/dL (13.5-17.5); LYMPHOCYTES # (AUTO) 0.6 K/uL (1.0-4.8); LYMPHOCYTES % (AUTO) 22.3 % (22.0-44.0); MEAN CORPUSCULAR HEMOGLOBIN 30.6 pg (26.0-34.0); MEAN CORPUSCULAR HGB CONC 33.2 G/dL (31.0-37.0); MEAN CORPUSCULAR VOLUME 92 fL (80-100); MONOCYTES # (AUTO) 0.3 K/uL (0.1-1.0); NEUTROPHILS # (AUTO) 1.9 K/uL (1.8-7.7); NEUTROPHILS % (AUTO) 66.5 % (40.0-70.0); PLATELET COUNT (AUTO) 261 K/uL (150-450); RED CELL DISTRIBUTION WIDTH 13.6 % (11.5-14.5)
[2022-03-29 20:02] LABS: ANION GAP 4 mmol/L (8-16); CALCIUM, TOTAL 9.5 mg/dL (8.8-10.5); CARBON DIOXIDE 32 mmol/L (22-29); CHLORIDE 100 mmol/L (98-107); CREATININE 1.09 mg/dL (0.60-1.30); GLUCOSE,RANDOM 95 mg/dL (70-110); POTASSIUM 4.6 mmol/L (3.5-5.1); SODIUM SERUM 136 mmol/L (136-145); UREA NITROGEN, BLOOD 25 mg/dL (7-18)
[2022-03-29 20:03] LABS: GLOMERULAR FILTR. RATE CALC > 60 mL/min (>60)
[2022-03-29 20:08] LABS: ALANINE AMINOTRANSFERASE 51 U/L (12-78); ALBUMIN 4.1 g/dL (3.4-5.0); ALKALINE PHOSPHATASE 67 U/L (46-116); ASPARTATE AMINOTRANSFERASE 54 U/L (15-37); BILIRUBIN,TOTAL 0.6 mg/dL (0.1-1.0)
[2022-03-29] MEDS ORDERED: IBUP-2070 PO (22:12)
[2022-03-29] MEDS ORDERED: PROM-163 PO (22:12)
[2022-03-29 23:10] VITALS: BP 135/85
== END 2022-03-29 23:13 | disposition home or self-care (01) ==
LOC: EMS 18:47
DX: G43.909 Migraine, unspecified, not intractable, without status migrainosus (principal); Z85.89 Personal history of malignant neoplasm of other organs and systems; Z98.890 Other specified postprocedural states
CPT/HCPCS: 99284; 96374; 70450; 96361; 96375; 80053; 85025; 36415; J1200; J1885; J7030

== ENCOUNTER 2022-04-08 17:15 | Emergency (ER) | payer MEDICAID ==
[~2022-04-08] VITALS: Ht 170.2 cm; Wt 62.3 kg
[~2022-04-08 17:15] MED LIST changes: -CEPH-558 PO; +IBUP-2070 PO; +PROM-163 PO
[2022-04-08 17:22] VITALS: BP 140/91
== END 2022-04-08 18:39 | disposition left against medical advice (07) ==
LOC: EMS 17:28
DX: R42 Dizziness and giddiness (principal); R51.9 Headache, unspecified; Z53.21 Procedure and treatment not carried out due to patient leaving prior to being seen by health care provider

== ENCOUNTER 2022-04-16 03:32 | Emergency (ER) | payer MEDICAID ==
[~2022-04-16] VITALS: Ht 170.2 cm; Wt 60.0 kg
[~2022-04-16 03:32] MED LIST changes: -PROM-163 PO
[2022-04-16 03:35] VITALS: BP 118/93
[2022-04-16] MEDS ORDERED: ACETAMINOPHEN 500 MG TABLET PO ONE (04:45)
[2022-04-16] MEDS ORDERED: GENTAMICIN SULFATE 0.3% OPHTHALMIC SOLUTION 5 ML OU ONE (04:45)
== END 2022-04-16 04:57 | disposition home or self-care (01) ==
LOC: EMS 03:36
DX: H10.9 Unspecified conjunctivitis (principal); G43.909 Migraine, unspecified, not intractable, without status migrainosus; Z98.890 Other specified postprocedural states
CPT/HCPCS: 99283

== ENCOUNTER 2022-04-18 15:46 | Emergency (ER) | payer MEDICAID ==
[~2022-04-18] VITALS: Ht 170.2 cm; Wt 54.5 kg
[2022-04-18] MEDS ORDERED: DiphenhydrAMINE HCL 50 MG/ML VIAL IVP ONE (17:15)
[2022-04-18] MEDS ORDERED: METOCLOPRAMIDE HCL 5 MG/ML 2 ML VIAL IVP ONE (17:15)
[2022-04-18] MEDS ORDERED: SODIUM CHLORIDE 0.9% 1,000 ML IV ONE (17:15)
[2022-04-18 18:40] VITALS: BP 134/82
== END 2022-04-18 19:45 | disposition home or self-care (01) ==
LOC: EMS 15:59
DX: G43.909 Migraine, unspecified, not intractable, without status migrainosus (principal); Z98.890 Other specified postprocedural states
CPT/HCPCS: 99284; 96374; 96361; 96375; J1200; J2765; J7030

== ENCOUNTER 2022-04-21 05:11 | Emergency (ER) | payer MEDICAID ==
[~2022-04-21] VITALS: Ht 170.2 cm; Wt 60.0 kg
[2022-04-21] MEDS ORDERED: FLUORESCEIN SODIUM 1 MG STRIP ONE (06:21)
[2022-04-21 06:25] VITALS: BP 119/77
[2022-04-21] MEDS ORDERED: SULFACETAMIDE SODIUM 10% 15 ML OPHTHALMIC SOLUTION OD ONE (06:30)
== END 2022-04-21 06:39 | disposition home or self-care (01) ==
LOC: EMS 05:12
DX: S05.01XA Injury of conjunctiva and corneal abrasion without foreign body, right eye, initial encounter (principal); G43.909 Migraine, unspecified, not intractable, without status migrainosus; Z98.890 Other specified postprocedural states; X58.XXXA Exposure to other specified factors, initial encounter; Y93.89 Activity, other specified; Y92.89 Other specified places as the place of occurrence of the external cause; Y99.8 Other external cause status
CPT/HCPCS: 99283

== ENCOUNTER 2022-05-04 14:42 | Emergency (ER) | payer MEDICAID ==
[~2022-05-04] VITALS: Ht 170.2 cm; Wt 57.7 kg
[2022-05-04] MEDS ORDERED: DiphenhydrAMINE HCL 50 MG/ML VIAL IVP ONE (15:00)
[2022-05-04] MEDS ORDERED: METOCLOPRAMIDE HCL 5 MG/ML 2 ML VIAL IVP ONE (15:00)
[2022-05-04] MEDS ORDERED: SODIUM CHLORIDE 0.9% 1,000 ML IV ONE (15:00)
[2022-05-04] MEDS ORDERED: MethylPREDNISolone SOD SUCC 125 MG/2 ML VIAL IVP ONE (15:30)
[2022-05-04] MEDS ORDERED: ACETAMINOPHEN 325 MG TABLET PO ONE (15:30)
[2022-05-04] MEDS ORDERED: KETOROLAC TROMETHAMINE 30 MG/ML VIAL IM ONE (15:30)
[2022-05-04 16:05] LABS: BASOPHILS % (AUTO) 0.7 % (0.0-2.0); EOSINOPHILS % (AUTO) 0.9 % (1.0-6.0); HEMATOCRIT 40.8 % (41-53); HEMOGLOBIN 13.9 g/dL (13.5-17.5); LYMPHOCYTES # (AUTO) 0.6 K/uL (1.0-4.8); LYMPHOCYTES % (AUTO) 26.1 % (22.0-44.0); MEAN CORPUSCULAR HEMOGLOBIN 31.9 pg (26.0-34.0); MEAN CORPUSCULAR HGB CONC 34.1 G/dL (31.0-37.0); MEAN CORPUSCULAR VOLUME 94 fL (80-100); MONOCYTES # (AUTO) 0.2 K/uL (0.1-1.0); NEUTROPHILS # (AUTO) 1.5 K/uL (1.8-7.7); NEUTROPHILS % (AUTO) 64.3 % (40.0-70.0); PLATELET COUNT (AUTO) 272 K/uL (150-450); RED BLOOD CELL COUNT(AUTO) 4.37 MIL/uL (4.50-5.90); RED CELL DISTRIBUTION WIDTH 14.4 % (11.5-14.5)
[2022-05-04 16:14] LABS: ANION GAP 2 mmol/L (8-16); CALCIUM, TOTAL 8.7 mg/dL (8.8-10.5); CARBON DIOXIDE 32 mmol/L (22-29); CHLORIDE 98 mmol/L (98-107); CREATININE 1.06 mg/dL (0.60-1.30); GLOMERULAR FILTR. RATE CALC > 60 mL/min (>60); GLUCOSE,RANDOM 132 mg/dL (70-110); POTASSIUM 3.5 mmol/L (3.5-5.1); SODIUM SERUM 132 mmol/L (136-145); UREA NITROGEN, BLOOD 16 mg/dL (7-18)
[2022-05-04 16:20] LABS: ALANINE AMINOTRANSFERASE 54 U/L (12-78); ALBUMIN 3.7 g/dL (3.4-5.0); ALKALINE PHOSPHATASE 73 U/L (46-116); ASPARTATE AMINOTRANSFERASE 51 U/L (15-37); BILIRUBIN,TOTAL 0.3 mg/dL (0.1-1.0); TOTAL PROTEIN, SERUM 8.1 g/dL (6.4-8.2)
[2022-05-04 17:33] VITALS: BP 122/72
== END 2022-05-04 17:30 | disposition home or self-care (01) ==
LOC: EMS 14:49
DX: G43.909 Migraine, unspecified, not intractable, without status migrainosus (principal); Z93.1 Gastrostomy status; Z85.21 Personal history of malignant neoplasm of larynx
CPT/HCPCS: 99284; 96374; 96375; 96361; 80053; 85025; 36415; 93005; 96372; J1200; J1885; J2765; J2930; J7030

== ENCOUNTER 2022-05-19 08:24 | Emergency (ER) | payer MEDICAID ==
[~2022-05-19] VITALS: Ht 170.2 cm; Wt 62.3 kg
[2022-05-19] MEDS ORDERED: ACETAMINOPHEN 500 MG TABLET PO ONE (09:30)
[2022-05-19] MEDS ORDERED: METOCLOPRAMIDE HCL 5 MG/ML 2 ML VIAL IVP ONE (09:30)
[2022-05-19] MEDS ORDERED: DiphenhydrAMINE HCL 50 MG/ML VIAL IVP ONE (09:30)
[2022-05-19] MEDS ORDERED: ONDANSETRON HCL 4 MG/2 ML VIAL IVP ONE (09:30)
[2022-05-19] MEDS ORDERED: KETOROLAC TROMETHAMINE 30 MG/ML VIAL IVP ONE (09:30)
[2022-05-19 10:08] LABS: BASOPHILS % (AUTO) 0.7 % (0.0-2.0); EOSINOPHILS % (AUTO) 0.8 % (1.0-6.0); HEMATOCRIT 43.5 % (41-53); HEMOGLOBIN 14.5 g/dL (13.5-17.5); LYMPHOCYTES # (AUTO) 0.7 K/uL (1.0-4.8); LYMPHOCYTES % (AUTO) 24.8 % (22.0-44.0); MEAN CORPUSCULAR HEMOGLOBIN 31.2 pg (26.0-34.0); MEAN CORPUSCULAR HGB CONC 33.4 G/dL (31.0-37.0); MEAN CORPUSCULAR VOLUME 93 fL (80-100); MONOCYTES # (AUTO) 0.2 K/uL (0.1-1.0); MONOCYTES % (AUTO) 7.5 % (2.0-9.0); NEUTROPHILS # (AUTO) 1.8 K/uL (1.8-7.7); NEUTROPHILS % (AUTO) 66.2 % (40.0-70.0); PLATELET COUNT (AUTO) 254 K/uL (150-450); RED BLOOD CELL COUNT(AUTO) 4.66 MIL/uL (4.50-5.90)
[2022-05-19 10:22] LABS: ALANINE AMINOTRANSFERASE 112 U/L (12-78); ALBUMIN 3.8 g/dL (3.4-5.0); ALKALINE PHOSPHATASE 71 U/L (46-116); ANION GAP 3 mmol/L (8-16); ASPARTATE AMINOTRANSFERASE 93 U/L (15-37); BILIRUBIN,TOTAL 0.7 mg/dL (0.1-1.0); CALCIUM, TOTAL 9.2 mg/dL (8.8-10.5); CARBON DIOXIDE 32 mmol/L (22-29); CHLORIDE 98 mmol/L (98-107); CREATININE 0.96 mg/dL (0.60-1.30); GLUCOSE,RANDOM 89 mg/dL (70-110); POTASSIUM 4.1 mmol/L (3.5-5.1); SODIUM SERUM 133 mmol/L (136-145); TOTAL PROTEIN, SERUM 8.7 g/dL (6.4-8.2); UREA NITROGEN, BLOOD 17 mg/dL (7-18)
[2022-05-19 10:23] LABS: GLOMERULAR FILTR. RATE CALC > 60 mL/min (>60)
[2022-05-19 11:55] VITALS: BP 138/80
== END 2022-05-19 12:29 | disposition home or self-care (01) ==
LOC: EMS 08:24
DX: G43.909 Migraine, unspecified, not intractable, without status migrainosus (principal); C14.0 Malignant neoplasm of pharynx, unspecified
CPT/HCPCS: 99284; 96374; 96375; 80053; 85025; 36415; J1200; J1885; J2765; J2405

== ENCOUNTER 2022-05-25 22:04 | Emergency (ER) | payer MEDICAID ==
[~2022-05-25] VITALS: Ht 170.2 cm; Wt 57.7 kg
[2022-05-25] MEDS ORDERED: DiphenhydrAMINE HCL 50 MG/ML VIAL IVP ONE (23:45)
[2022-05-25] MEDS ORDERED: METOCLOPRAMIDE HCL 5 MG/ML 2 ML VIAL IVP ONE (23:45)
[2022-05-25] MEDS ORDERED: SODIUM CHLORIDE 0.9% 1,000 ML IV ONE (23:45)
[2022-05-26 01:30] VITALS: BP 129/74
== END 2022-05-26 02:00 | disposition home or self-care (01) ==
LOC: EMS 22:04
DX: G43.909 Migraine, unspecified, not intractable, without status migrainosus (principal); Z85.21 Personal history of malignant neoplasm of larynx; Z93.1 Gastrostomy status
CPT/HCPCS: 99284; 96374; 96361; 96375; J1200; J2765; J7030

== ENCOUNTER 2022-06-14 11:10 | Emergency (ER) | payer MEDICAID ==
[~2022-06-14] VITALS: Ht 175.3 cm; Wt 68.2 kg
[2022-06-14 12:17] LABS: EOSINOPHILS % (AUTO) 2.2 % (1.0-6.0); HEMATOCRIT 40.8 % (41-53); HEMOGLOBIN 13.7 g/dL (13.5-17.5); LYMPHOCYTES # (AUTO) 0.5 K/uL (1.0-4.8); LYMPHOCYTES % (AUTO) 25.3 % (22.0-44.0); MEAN CORPUSCULAR HEMOGLOBIN 31.7 pg (26.0-34.0); MEAN CORPUSCULAR HGB CONC 33.6 G/dL (31.0-37.0); MEAN CORPUSCULAR VOLUME 95 fL (80-100); MONOCYTES # (AUTO) 0.1 K/uL (0.1-1.0); MONOCYTES % (AUTO) 7.2 % (2.0-9.0); NEUTROPHILS # (AUTO) 1.2 K/uL (1.8-7.7); NEUTROPHILS % (AUTO) 64.3 % (40.0-70.0); PLATELET COUNT (AUTO) 240 K/uL (150-450); RED BLOOD CELL COUNT(AUTO) 4.32 MIL/uL (4.50-5.90); RED CELL DISTRIBUTION WIDTH 14.8 % (11.5-14.5)
[2022-06-14 12:28] LABS: ANION GAP 8 mmol/L (8-16); CALCIUM, TOTAL 8.9 mg/dL (8.8-10.5); CARBON DIOXIDE 30 mmol/L (22-29); CHLORIDE 97 mmol/L (98-107); CREATININE 1.03 mg/dL (0.60-1.30); GLUCOSE,RANDOM 103 mg/dL (70-110); SODIUM SERUM 135 mmol/L (136-145); UREA NITROGEN, BLOOD 16 mg/dL (7-18)
[2022-06-14 12:29] LABS: GLOMERULAR FILTR. RATE CALC > 60 mL/min (>60)
[2022-06-14] MEDS ORDERED: DiphenhydrAMINE HCL 50 MG/ML VIAL IVP ONE (12:30)
[2022-06-14] MEDS ORDERED: SODIUM CHLORIDE 0.9% 1,000 ML IV ONE (12:30)
[2022-06-14] MEDS ORDERED: KETOROLAC TROMETHAMINE 30 MG/ML VIAL IVP ONE (12:30)
[2022-06-14] MEDS ORDERED: METOCLOPRAMIDE HCL 5 MG/ML 2 ML VIAL IVP ONE (12:30)
[2022-06-14 12:33] LABS: B-TYPE NATRIURETIC PEPTIDE 18 pg/mL (0-100)
[2022-06-14 12:36] LABS: ALANINE AMINOTRANSFERASE 84 U/L (12-78); ALBUMIN 4.1 g/dL (3.4-5.0); ALKALINE PHOSPHATASE 72 U/L (46-116); ASPARTATE AMINOTRANSFERASE 106 U/L (15-37); BILIRUBIN,TOTAL 0.6 mg/dL (0.1-1.0); TOTAL PROTEIN, SERUM 8.8 g/dL (6.4-8.2)
[2022-06-14 13:40] LABS: CREATINE KINASE, TOTAL ONLY 1154 U/L (39-308)
[2022-06-14 13:41] LABS: COVID AG,FIA SOURCE NASAL SWAB
[2022-06-14 15:11] VITALS: BP 142/97
[2022-06-14 15:53] LABS: INFLUENZA TYPE A POSITIVE FOR TYPE A (NEGATIVE); INFLUENZA TYPE B NEGATIVE FOR TYPE B (NEGATIVE)
== END 2022-06-14 15:23 | disposition home or self-care (01) ==
LOC: EMS 11:23
DX: G43.909 Migraine, unspecified, not intractable, without status migrainosus (principal); F15.90 Other stimulant use, unspecified, uncomplicated; Z20.822 Contact with and (suspected) exposure to COVID-19
CPT/HCPCS: 99285; 96374; 71045; 96375; 96361; 87426; 80053; 82550; 83880; 84484; 85025; 87804; 36415; 93005; J1200; J1885; J2765; J7030; C9803